=== PATIENT | female | born 1950 | race Caucasian/White ===

== ENCOUNTER 2019-09-21 16:10 | Outpatient (CLI) | payer MEDICARE, OTHER, SELFPAY ==
--- NOTE | ~2019-09-21 | MR_ITS ---
EXAMINATION: MR shoulder RT wo con DATE: 09/21/2019 16:59 INDICATION: Primary osteoarthritis of the right shoulder TECHNIQUE: Magnetic resonance imaging (MRI) of the right shoulder was performed without intravenous c ontrast. Sequences included axial PD-weighted FS FSE, coronal oblique PD-weighted FS FSE, coronal obl ique T2-weighted FS FSE, sagittal PD-weighted FS FSE, and sagittal T1-weighted SE. COMPARISON: None. FINDINGS: Coracoacromial arch: The acromion undersurface is curved in morphology (type II). The coracoacromial ligament is normal. M oderate acromioclavicular osteoarthritis. Rotator cuff: Mild tendinopathy of the subscapularis, anterior supraspinatus and posterior infraspinatus tendons. M oderate tendinopathy at the intervening conjoined portion of the infraspinatus and infraspinatus tend ons without discrete tear. The teres minor tendon is normal. Normal rotator cuff muscle bulk and sign al. Biceps tendon, glenoid labrum and glenohumeral cartilage: Long head of the biceps tendon is normal. Small tear at the 12:00 position of the superior glenoid la jonathan. There is approximately 9 x 3 mm deep chondral ulceration without degenerative subchondral y[place] es at the superomedial aspect of the normal head. Remaining cartilage in the glenohumeral joint appea rs normal. Fluid: Physiologic amount of fluid in the glenohumeral joint and biceps tendon sheath. No loose osteochondra l bodies. Mild increased fluid signal in the subacromial/subdeltoid bursa consistent with mild bursit is. Bones: Normal marrow signal with no edema, fracture or pathologic marrow replacing process. Mild cystic ordoñez ge at the greater tuberosity. IMPRESSION: 1. Mild to moderate rotator cuff tendinopathy greatest at the conjoined portion of the supraspinatus and infraspinatus tendons without discrete tear. 2. Small SLAP tear at the 12:00 position of the glenoid labrum. 3. Mild osteoarthritis but with small focal deep chondral ulceration at the humeral head. 4. Moderate acromial clavicular osteoarthritis with mild underlying subacromial/subdeltoid bursitis. Reviewed, dictated and finalized at location A. IMPRESSION: 1. Mild to moderate rotator cuff tendinopathy greatest at the conjoined portion of the supraspinatus and infraspinatus tendons without discrete tear. 2. Small SLAP tear at the 12:00 position of the glenoid labrum. 3. Mild osteoarthritis but with small focal deep chondral ulceration at the hum eral head. 4. Moderate acromial clavicular osteoarthritis with mild underlying subacromial /subdeltoid bursitis.
== END 2019-09-21 16:11 | disposition home or self-care (01) ==
LOC: ANHIMG 16:12
PROVIDERS: Visit Provider Orthopaedic Surgery
DX: S43.431D Superior glenoid labrum lesion of right shoulder, subsequent encounter (principal); M19.011 Primary osteoarthritis, right shoulder; M19.012 Primary osteoarthritis, left shoulder
CPT/HCPCS: 73221

== ENCOUNTER → 2020-02-15 12:54 | Outpatient (CLI) | payer MEDICARE, OTHER, SELFPAY ==
--- NOTE | ~2020-02-15 | MR_ITS ---
EXAMINATION: MR shoulder LT wo con DATE: 02/15/2020 13:36 INDICATION: Left shoulder pain. Other enthesopathy not elsewhere classified. TECHNIQUE: Magnetic resonance imaging (MRI) of the left shoulder was performed without intravenous co ntrast. Sequences included axial PD-weighted FS FSE, coronal oblique PD-weighted FS FSE, coronal obli que T2-weighted FS FSE, sagittal PD-weighted FS FSE, and sagittal T1-weighted SE. COMPARISON: None. FINDINGS: Coracoacromial arch: The acromion undersurface is curved in morphology (type II). The coracoacromial ligament is normal. M ild acromioclavicular osteoarthritis. Rotator cuff: Mild supraspinatus and infraspinatus tendinopathy with moderate tendinopathy of the conjoined portion of the tendons. There is a partial-thickness tear extending approximately 1.4 similar anterior to po steriorly at the critical zone of the supraspinatus tendon approximately 1.3 cm from the superior fac et footplate. The tear appears to likely extend to involve at least portions of the articular surface however there is no definite retraction of the torn portion of the tendon. The tear involves up to 5 0% of the tendon thickness. Teres minor tendon is normal. Mild subscapularis tendinopathy without dis crete tear. Normal rotator cuff muscle bulk and signal. Biceps tendon, glenoid labrum and glenohumeral cartilage: Long head of the biceps tendon is normal. The anterosuperior labrum appears absent with thickened cor dlike middle glenohumeral ligament consistent with a [place] complex. There is degenerative fraying al lorenza the free edge of the posterior superior glenoid labrum. There is deep chondral fissuring along th e superior superomedial humeral head without degenerative subarticular changes Fluid: Physiologic amount of fluid in the glenohumeral joint and biceps tendon sheath. No loose osteochondra l bodies. Mild increased fluid signal in the subacromial/subdeltoid bursa consistent with mild bursit is. Bones: Normal marrow signal with no edema, fracture or abnormal marrow replacing process. IMPRESSION: 1. Mild to moderate supraspinatus and infraspinatus tendinopathy just at the conjoined portion of the tendons with small partial-thickness articular sided tear extending 1.3 cm AP along the critical zon e of the supraspinatus tendon. 2. Mild glenohumeral osteoarthritis with moderate grade humeral chondromalacia with deep chondral fis suring at the superomedial aspect of the humeral head. 3. Mild degenerative fraying along the free edge of the posterior superior glenoid labrum. 4. Mild acromioclavicular osteoarthritis with mild underlying subacromial/subdeltoid bursitis. Reviewed, dictated and finalized at location A. IGERATION TECH IMPRESSION: 1. Mild to moderate supraspinatus and infraspinatus tendinopathy just at the co njoined portion of the tendons with small partial-thickness articular sided tea r extending 1.3 cm AP along the critical zone of the supraspinatus tendon. 2. Mild glenohumeral osteoarthritis with moderate grade humeral chondromalacia with deep chondral fissuring at the superomedial aspect of the humeral head. 3. Mild degenerative fraying along the free edge of the posterior superior romy oid labrum. 4. Mild acromioclavicular osteoarthritis with mild underlying subacromial/subde ltoid bursitis.
== END ==
PROVIDERS: PCP Internal Medicine; Visit Provider Orthopaedic Surgery
DX: M77.8 Other enthesopathies, not elsewhere classified (principal); M19.012 Primary osteoarthritis, left shoulder
CPT/HCPCS: 73221

== ENCOUNTER 2020-06-07 13:09 | Outpatient (CLI) | payer MEDICARE, OTHER, SELFPAY ==
--- NOTE | 2020-06-07 13:30 | ECG_ITS ---
Measurements Intervals [place] Rate: 66 P: 48 AK: 186 QRS: 17 QRSD: 85 T: 66 QT: 382 QTc: 400 Interpretive Statements SINUS RHYTHM LOW QRS VOLTAGE IN PRECORDIAL LEADS BASELINE ARTIFACT- I, II, III, AVR, AVL, AVF BORDERLINE ECG Electronically Signed On 06-07-2020 13:35:47 ENVIRONMENTAL ENGINEER by Jun Maria D.O.
[2020-06-07 13:54] LABS: Anion Gap 1 mmol/L (8-16); Blood Urea Nitrogen 17 mg/dL (7-17); Calcium 9.3 mg/dL (8.4-10.2); Carbon Dioxide 30 mmol/L (22-30); Chloride 109 mmol/L (98-107); Estimated Glomerular Filt Rate > 60; Glucose 131 mg/dL (65-105); Potassium 3.9 mmol/L (3.4-5.0); Sodium 140 mmol/L (137-145)
== END 2020-06-07 13:10 | disposition home or self-care (01) ==
PROVIDERS: Anesthesiology; PCP Internal Medicine; Visit Provider Orthopaedic Surgery
DX: I10 Essential (primary) hypertension (principal); Z79.899 Other long term (current) drug therapy; Z01.818 Encounter for other preprocedural examination; R94.31 Abnormal electrocardiogram [ECG] [EKG]
CPT/HCPCS: 36415; 80048; 93005

== ENCOUNTER → 2020-06-10 01:24 | Outpatient (CLI) | payer MEDICARE, OTHER, SELFPAY ==
[2020-06-10 23:33] LABS: SARS-CoV-2 RNA PCR Negative
== END ==
PROVIDERS: PCP Internal Medicine; Visit Provider Orthopaedic Surgery
DX: Z01.812 Encounter for preprocedural laboratory examination (principal); Z20.822 Contact with and (suspected) exposure to COVID-19
CPT/HCPCS: C9803; U0003; U0005

== ENCOUNTER 2020-06-13 02:27 | Day surgery (SDC) | payer MEDICARE, OTHER, SELFPAY ==
[2020-06-06 14:29] VITALS: BMI 31.8
[2020-06-13] VITALS (11 sets, daily range): BP systolic 128–154; BP diastolic 53–97; PULSE 50–106; RESP 14–20; TEMP 35.9–36.6; O2SAT 92–100
--- NOTE | 2020-06-13 07:18 | WPDHPUPDATE1 ---
History and Physical Update Update Date/Time: 06/13/20 07:18 History and Physical has been reviewed, including an updated exam of the patient. There are NO changes in the patient's condition. Risks, benefits, and alternatives have been discussed and questions answered. Patient agrees to proceed with procedure.
--- NOTE | 2020-06-13 08:08 | WPDANESEPPF ---
Anes - Initial Pre Proc Eval Procedure: Operation Date: 06/13/20 10:30 Proposed Procedures p Left Shoulder Arthroscopic Rotator Cuff Repair, Proceed As Indicated - Ollie Weinstein MD Date/Time: 06/13/20 08:08 Surgeon: Ollie Weinstein MD Pre Op Diagnosis: left partial tear of rotator cuff Patient Data Age: 69 Gender: F Height: 1.65 m Weight: 87 kg Allergies Allergy/AdvReac Type Severity Reaction Status Date / Time erythromycin base Allergy Unknown Unknown Verified 06/06/20 14:11 [From E-Mycin] morphine Allergy Unknown Swelling Verified 06/06/20 14:11 AT INSERTION SITE Home Medications Medication Instructions Recorded Confirmed Type albuterol sulfate 0.63 mg/3 mL 0.63 mg INHALATION Q6H PRN 09/13/19 06/06/20 History solution for nebulization amlodipine 5 mg tablet 5 mg PO DAILY 09/13/19 06/06/20 History aspirin 81 mg tablet,delayed 81 mg PO DAILY 09/13/19 06/06/20 History release atorvastatin 40 mg tablet 40 mg PO HS 09/13/19 06/06/20 History cholecalciferol (vitamin D3) 50 50 mcg PO DAILY 09/13/19 06/06/20 History mcg (2,000 unit) capsule esomeprazole magnesium 40 mg 40 mg PO QAM 09/13/19 06/06/20 History capsule,delayed release furosemide 20 mg tablet 20 mg PO QAM PRN 09/13/19 06/06/20 History gabapentin 300 mg capsule 300 mg PO DAILY PRN 09/13/19 06/06/20 History hyoscyamine sulfate 0.125 mg 0.125 mg PO QID PRN 09/13/19 06/06/20 History sublingual tablet losartan 50 mg tablet 50 mg PO QAM 09/13/19 06/06/20 History lubiprostone 8 mcg capsule 8 mcg PO DAILY PRN 09/13/19 06/06/20 History magnesium 250 mg tablet 250 mg PO DAILY 09/13/19 06/06/20 History albuterol sulfate [Ventolin HFA] 2 puff INHALATION Q4-5H PRN 06/06/20 06/06/20 History doxylamine succinate 12.5 mg PO HS PRN 06/06/20 06/06/20 History Patient hx anesthesia problems: none Family hx anesthesia problems: none [facility] Past Medical History Medical History Asthma CAD (coronary artery disease) COPD (chronic obstructive pulmonary disease) History of cardiac disorder History of kidney stones (~2015) Also 2017, 2018 Hx of myocardial infarction Hypercholesterolemia Hypertension Obesity Osteoarthritis of shoulders, bilateral Osteoporosis Surgical History Surgical History History of (~1988) History of cardiac cath (~2005) placed 2 stents History of cardiac cath (~2008) History of cardiac cath (~2009) History of cardiac cath (~06/2012) History of cardiac cath (~12/2015) History of cholecystectomy (~1995) History of D&C (~1970) History of lobectomy of lung (~07/2010) History of lung surgery (~2010) History of partial hysterectomy (~1988) History of tonsillectomy (~1956) History of total hysterectomy (~1992) Family History Family History Other Breast cancer Heart disease Social History Social History Smoking status: Never smoker Alcohol intake: current Substance use: never Living arrangements: with family Additional living arrangements comments: Spiritual care concerns: No Anes - Eval Final PreProcedure Day of Procedure 06/13/20 08:08 Patient weight: obese Heart: regular rate and rhythm Lungs: clear to auscultation and normal air movement Airway: Mallampati scale class II Neurological: alert and oriented Last oral intake: >/= 8 hours ASA classification: III Emergent: no Anesthetic plan: proceed Anesthesia type and monitoring: general ETT Informed Consent: The patient's anesthetic plan and its attendant risks and benefits were discussed with the patient/family/POA. Questions were solicited and answers provided to the satisfaction of the patient/family/POA.
--- NOTE | 2020-06-13 08:12 | WPDANESPNB ---
Anes - Peripheral Nerve Block Date/Time: 06/13/20 08:12 I have discussed with the patient/family/POA the placement of a peripheral nerve block for post-operative pain management, including associated risks, benefits, complications, and side effects. Alternative methods of post-operative analgesia were detailed. Questions were solicited and answers provided to the satisfaction of the patient/family/POA. Time-Out: A pre-procedural Time-Out was completed immediately before starting the procedure and confirmed: Patient Identification, Site, Procedure, Patient Position and the Availability of Requisite Equipment. Clinical Indications: Acute post-operative pain management requested by the operative surgeon. Nerve Block Insertion Note Needle: 22 gauge, stimulating, insulated echogenic needle.
[2020-06-13] MEDS: LACTATED RINGERS 1,000 ML 30 ML IV CONT ×2 (09:22→12:14)
--- NOTE | 2020-06-13 09:41 | WPDANESEPP ---
Anes - Eval Pre Procedure Procedure: Operation Date: 06/13/20 10:30 Proposed Procedures p Left Shoulder Arthroscopic Rotator Cuff Repair, Proceed As Indicated - Ollie Weinstein MD Date/Time: 06/13/20 09:41 Pre Op Diagnosis: left partial tear of rotator cuff Patient Data Age: 69 Gender: F Height: 1.65 m Weight: 87 kg Allergies Allergy/AdvReac Type Severity Reaction Status Date / Time erythromycin base Allergy Unknown Unknown Verified 06/06/20 14:11 [From E-Mycin] morphine Allergy Unknown Swelling Verified 06/06/20 14:11 AT INSERTION SITE Home Medications Medication Instructions Recorded Confirmed Type albuterol sulfate 0.63 mg/3 mL 0.63 mg INHALATION Q6H PRN 09/13/19 06/06/20 History solution for nebulization amlodipine 5 mg tablet 5 mg PO DAILY 09/13/19 06/06/20 History aspirin 81 mg tablet,delayed 81 mg PO DAILY 09/13/19 06/06/20 History release atorvastatin 40 mg tablet 40 mg PO HS 09/13/19 06/06/20 History cholecalciferol (vitamin D3) 50 50 mcg PO DAILY 09/13/19 06/06/20 History mcg (2,000 unit) capsule esomeprazole magnesium 40 mg 40 mg PO QAM 09/13/19 06/06/20 History capsule,delayed release furosemide 20 mg tablet 20 mg PO QAM PRN 09/13/19 06/06/20 History gabapentin 300 mg capsule 300 mg PO DAILY PRN 09/13/19 06/06/20 History hyoscyamine sulfate 0.125 mg 0.125 mg PO QID PRN 09/13/19 06/06/20 History sublingual tablet losartan 50 mg tablet 50 mg PO QAM 09/13/19 06/06/20 History lubiprostone 8 mcg capsule 8 mcg PO DAILY PRN 09/13/19 06/06/20 History magnesium 250 mg tablet 250 mg PO DAILY 09/13/19 06/06/20 History albuterol sulfate [Ventolin HFA] 2 puff INHALATION Q4-5H PRN 06/06/20 06/06/20 History doxylamine succinate 12.5 mg PO HS PRN 06/06/20 06/06/20 History Patient hx anesthesia problems: none Family hx anesthesia problems: none [facility] Past Medical History Medical History Asthma CAD (coronary artery disease) COPD (chronic obstructive pulmonary disease) History of cardiac disorder History of kidney stones (~2015) Also 2017, 2018 Hx of myocardial infarction Hypercholesterolemia Hypertension Obesity Osteoarthritis of shoulders, bilateral Osteoporosis Surgical History Surgical History History of (~1988) History of cardiac cath (~2005) placed 2 stents History of cardiac cath (~2008) History of cardiac cath (~2009) History of cardiac cath (~06/2012) History of cardiac cath (~12/2015) History of cholecystectomy (~1995) History of D&C (~1970) History of lobectomy of lung (~07/2010) History of lung surgery (~2010) History of partial hysterectomy (~1988) History of tonsillectomy (~1956) History of total hysterectomy (~1992) Family History Family History Other Breast cancer Heart disease Social History Social History Smoking status: Never smoker Alcohol intake: current Substance use: never Living arrangements: with family Additional living arrangements comments: Spiritual care concerns: No Exam Day of Procedure 06/13/20 09:41
[2020-06-13] MEDS: KETOROLAC 15 MG/ML VIAL (*BKC) IV PUSH (09:55)
[2020-06-13] MEDS: ACETAMINOPHEN 500 MG TABLET 1000 MG PO (09:55)
[2020-06-13] MEDS: ceFAZolin 2 GM/D5W 50 ML 2 GM/50 ML BAG IVPB (10:07)
[2020-06-13] MEDS: BUPIVACAINE/EPINEPHRINE 0.5% 30 ML VIAL 50 ML INFILTRATE (10:55)
--- NOTE | 2020-06-13 12:32 | PM.PROC ---
Procedure Note - Detailed Date of procedure: 06/13/20 Pre-op diagnosis: left partial tear of rotator cuff Post-op diagnosis: other (1. Partial-thickness rotator cuff tear 2.Impingement syndrome shoulder 3. Degenerative labral tear) Procedure performed: 1. Arthroscopic rotator cuff repair. 2. Arthrosocopic labral debridement. 3. Arthroscopic subacromial decompression. Implants: [employer] YOSSI tendon anchors x4. Two peek bone anchors. Regeneten collagen bio inductive implant Anesthesia: GETA and regional Surgeon: Ollie Weinstein MD Product Manager [employer]: Lin Courtney PA-C Estimated blood loss (mL): 10 Complications: None Condition: stable Disposition: PACU Findings: Physician medical records assistant, Lin Courtney PA-C, required for surgery; including patient positioning, draping, arthroscopic camera operation, maintaining instrument position, deployment of the collagen implant, cannula stabilization during anchor placement, wound closure, and dressing and sling placement. Brief history: The patient complained of persistent pain with overhead and reaching activities. Pain persisted despite physical therapy and cortisone injections. Operative details: Patient was given an interscalene block in the holding area. Preoperative antibiotics were given. The patient was brought to the operating room. Careful positioning in the lateral decubitus position was accomplished. The head neck were carefully positioned. An axillary roll was placed. The shoulder was examined. The shoulder was prepped and draped in the usual sterile fashion. Standard posterior and anterior arthroscopic portals were established. The shoulder was inspected. the superior labrum as well as a portion of the posterior and anterior labrum were quite degenerative. Simple debridement was necessary. The biceps anchor itself remained secure. The biceps tendon was pulled into the joint and found to be benign. The upper subscapularis had mild partial-thickness split tearing. This was left in situ. The supraspinatus showed mid grade articular sided partial tearing, A2. Attention was turned to the subacromial space. A complete bursectomy was performed. An accessory lateral portal was created. The acromion was clearly visualized. The coracoacromial ligament was released. Careful acromioplasty was performed utilizing views from both lateral and posterior. The supraspinatus appeared healthy. It was previously marked and there was no significant soft spot or highly degenerative area that needed to be completed. Thus, the tear was amenable for a repair using the bio inductive implant. The arthroscopic delivery system was used to place 4 YOSSI anchors in the tendon. Peek anchors were placed on the bone. Excellent placement in control of the graft implant was assured using a marker placed at the anterior supraspinatus just behind the biceps tendon. The arthroscopic instruments were removed. The wounds were closed with interrupted 3-0 Monocryl suture followed by Steri-Strips. A sterile dressing was applied with a sling. The patient was extubated and brought to the recovery room in stable condition. There were no complications.
[2020-06-13] MEDS: ONDANSETRON INJ 4 MG/2 ML VIAL IV PUSH (13:00)
[2020-06-13] MEDS: diphenhydrAMINE HCl INJ 50 MG/ML VIAL 25 MG IV PUSH (13:10)
[2020-06-13] MEDS: SCOPOLAMINE 1.5 MG PATCH TRANSDERM (14:10)
[2020-06-13] MEDS: HALOPERIDOL LACTATE 5 MG/ML VIAL 1 MG IV PUSH (14:18)
== END 2020-06-13 15:25 | disposition home or self-care (01) ==
PROVIDERS: PCP Internal Medicine; Visit Provider Orthopaedic Surgery
PROC: (CPT 29805; principal; 2020-06-13 10:30)
DX: M75.112 Incomplete rotator cuff tear or rupture of left shoulder, not specified as traumatic (principal); M19.012 Primary osteoarthritis, left shoulder; M19.011 Primary osteoarthritis, right shoulder; I25.10 Atherosclerotic heart disease of native coronary artery without angina pectoris; I10 Essential (primary) hypertension; I25.2 Old myocardial infarction; J44.9 Chronic obstructive pulmonary disease, unspecified; E78.00 Pure hypercholesterolemia, unspecified; M81.0 Age-related osteoporosis without current pathological fracture; Z79.82 Long term (current) use of aspirin; E66.9 Obesity, unspecified; Z68.33 Body mass index [BMI] 33.0-33.9, adult
CPT/HCPCS: 29827; 29826; A4565; A9270; J0330; J0690; J1100; J1170; J1200; J1630; J1885; J2250; J2405; J2704; J3010; J7120

== ENCOUNTER 2020-12-25 08:06 | Outpatient (CLI) | payer MEDICARE, OTHER, SELFPAY ==
--- NOTE | ~2020-12-25 | MR_ITS ---
EXAMINATION: MR shoulder LT wo con DATE: 12/25/2020 09:46 INDICATION: Left shoulder pain TECHNIQUE: Magnetic resonance imaging (MRI) of the left shoulder was performed without intravenous co ntrast. Sequences included axial PD-weighted FS FSE, coronal oblique PD-weighted FS FSE, coronal obli que T2-weighted FS FSE, sagittal PD-weighted FS FSE, and sagittal T1-weighted SE. COMPARISON: None. FINDINGS: Coracoacromial arch: The acromion undersurface is curved in morphology (type II). Thickening of the coracoacromial ligamen t at its acromial insertion. Mild acromioclavicular osteoarthritis. Rotator cuff: Supraspinatus and infraspinatus tendinopathy with moderate tendinopathy conjoined portion of the tend on. No evident progression of a partial-thickness intrasubstance tear at the critical zone of the sup raspinatus tendon approximately 1.3 cm from the superior facet footplate which is less clearly seen t [place] on the prior study at which time it was estimated to measure proximal 1.4 similar anteroposterior ly and to involve up to 50% the tendon thickness. Teres minor tendon is normal. Mild subscapularis te ndinopathy without discrete tear. Normal rotator cuff muscle bulk and signal. Biceps tendon, glenoid labrum and glenohumeral cartilage: Long head of the biceps tendon is normal. Again seen is a likely [place] complex with absent anterosup erior glenoid labrum and thickened cordlike middle glenohumeral ligament. Degenerative tearing of the posterior superior to posterior glenoid labrum. Enhancing is deep chondral fissuring without degener ative subchondral changes at the apex and superomedial aspect of the humeral head. Fluid: Physiologic amount of fluid in the glenohumeral joint and biceps tendon sheath. No loose osteochondra l bodies. Small amount of fluid in the subacromial/subdeltoid bursa consistent with mild bursitis. Bones: Normal marrow signal with no edema, fracture or pathologic marrow replacing process. IMPRESSION: 1. No significant change in mild to moderate supraspinatus and infraspinatus tendinopathy with small partial-thickness tear at the critical zone of the supraspinatus tendon. This is less clearly visuali zed than on the prior study at which time it appeared predominantly intrasubstance with likely some a rticular sided involvement. 2. Mild glenohumeral osteoarthritis with deep chondral fissuring in the vicinity of the apex of the h umeral head. 3. Mild degenerative tearing along the posterior superior to posterior glenoid labrum. 4. Mild acromioclavicular osteoarthritis with mild underlying subacromial/subdeltoid bursitis. Reviewed, dictated and finalized at location A. IMPRESSION: 1. No significant change in mild to moderate supraspinatus and infraspinatus te ndinopathy with small partial-thickness tear at the critical zone of the supras pinatus tendon. This is less clearly visualized than on the prior study at [facility] time it appeared predominantly intrasubstance with likely some articular side d involvement. 2. Mild glenohumeral osteoarthritis with deep chondral fissuring in the vic[place] y of the apex of the humeral head. 3. Mild degenerative tearing along the posterior superior to posterior glenoid labrum. 4. Mild acromioclavicular osteoarthritis with mild underlying subacromial/subde ltoid bursitis.
== END 2020-12-25 08:07 | disposition home or self-care (01) ==
PROVIDERS: PCP Internal Medicine; Visit Provider Orthopaedic Surgery
DX: M75.120 Complete rotator cuff tear or rupture of unspecified shoulder, not specified as traumatic (principal); R05 Cough; M19.012 Primary osteoarthritis, left shoulder; M77.8 Other enthesopathies, not elsewhere classified; S43.402A Unspecified sprain of left shoulder joint, initial encounter; M75.52 Bursitis of left shoulder
CPT/HCPCS: 73221